=== PATIENT | female | born 1945 | race Caucasian/White ===

== ENCOUNTER 2021-12-17 14:29 | Emergency (ER) | payer MEDICARE ==
[~2021-12-17] VITALS: Ht 160 cm; Wt 88.5 kg
[2021-12-17 14:41] VITALS: BP_SYST 183
[2021-12-17] MEDS ORDERED: IBUPROFEN 600 MG TABLET PO ONE (16:15)
[2021-12-17 16:17] LABS: BASOPHILS % (AUTO) 0.4 % (0.0-2.0); EOSINOPHILS # (AUTO) 0.2 K/uL (0.0-0.4); EOSINOPHILS % (AUTO) 2.1 % (0.0-4.0); HEMATOCRIT 39.3 % (36-48); LYMPHOCYTES # (AUTO) 3.2 K/uL (1.0-5.5); LYMPHOCYTES % (AUTO) 34.5 % (20.5-51.5); MEAN CORPUSCULAR HEMOGLOBIN 30 pg (27-31); MEAN CORPUSCULAR HGB CONC 33 % (32-36); MEAN CORPUSCULAR VOLUME 91 fL (79.0-98.0); MONOCYTES # (AUTO) 0.7 K/uL (0.0-1.0); MONOCYTES % (AUTO) 7.5 % (1.7-9.3); NEUTROPHILS # (AUTO) 5.1 K/uL (1.8-7.7); NEUTROPHILS % (AUTO) 55.5 % (40.0-70.0); PLATELET COUNT (AUTO) 167 K/uL (130-430); RED BLOOD CELL COUNT(AUTO) 4.34 MIL/uL (4.2-6.2); RED CELL DISTRIBUTION WIDTH 15.2 % (9.0-15.0); WHITE BLOOD COUNT (AUTO) 9.2 K/uL (4.8-10.8)
[2021-12-17] MEDS ORDERED: KETOROLAC TROMETHAMINE 60 MG/2 ML VIAL IM ONE ×2 (17:45→17:47)
[2021-12-17] MEDS ORDERED: NAPR-690 PO (17:56)
[2021-12-17 18:21] VITALS: BP_SYST 183
[2021-12-17 19:53] LABS: ANION GAP 11 (5-15); CALCIUM 9.3 mg/dL (8.4-11.0); CHLORIDE 106 mmol/L (98-107); GLUCOSE 164 mg/dL (70-99); POTASSIUM 4.3 mmol/L (3.5-5.1)
[2021-12-17 19:54] LABS: ALANINE AMINOTRANSFERASE 30 U/L (12-78); ASPARTATE AMINOTRANSFERASE 35 U/L (10-37); TOTAL BILIRUBIN 1.4 mg/dL (0.0-1.0); UREA NITROGEN, BLOOD 21 mg/dL (8-21)
[2021-12-17 19:55] LABS: ALBUMIN 3.8 g/dL (3.4-4.8)
== END 2021-12-17 18:21 | disposition home or self-care (01) ==
LOC: SED 14:29
DX: M25.512 Pain in left shoulder (principal); M79.622 Pain in left upper arm; I10 Essential (primary) hypertension; Z79.899 Other long term (current) drug therapy
CPT/HCPCS: 99285; 70450; 80053; 85025; 87040; 36415; 93005; 73030; 72192; 76376; 96372; 83605; J1885

== ENCOUNTER 2022-03-29 08:10 | Day surgery (SDC) | payer OTHER ==
[~2022-03-29] VITALS: Ht 162.6 cm; Wt 86.2 kg
[~2022-03-29 08:10] MED LIST: NAPR-690 PO
[2022-03-29] MEDS ORDERED: PRO40 PO (09:04)
[2022-03-29] MEDS ORDERED: METO25TA6 PO (09:06)
[2022-03-29] MEDS ORDERED: ROSU40TA23 PO (09:08)
[2022-03-29] MEDS ORDERED: SITA1TBM7 PO (09:08)
[2022-03-29] MEDS ORDERED: LOSA50TA3 PO ×2 (09:10→09:13)
[2022-03-29] MEDS ORDERED: HYDR-3917 PO (10:38)
[2022-03-29] MEDS ORDERED: LABETALOL 100 MG/ 20ML VIAL IVP PRN (12:15)
[2022-03-29] MEDS ORDERED: METOCLOPRAMIDE HCL 10 MG/2 ML VIAL IVP PRN (12:15)
[2022-03-29] MEDS ORDERED: HYDROmorphone 1 MG/ML INJ. CARTRIDGE IVP PRN ×2 (12:15)
[2022-03-29] MEDS ORDERED: LR 1,000 ML IV SCH (12:15)
[2022-03-29] MEDS ORDERED: hydrALAZINE HCL 20 MG/ML VIAL IVP PRN (12:15)
[2022-03-29] MEDS ORDERED: MEPERIDINE HCL/PF 25 MG/ML DISP.SYRIN IVP PRN (12:15)
[2022-03-29] MEDS ORDERED: MIDAZOLAM HCL 2 MG/2 ML VIAL (VERSED) IVP PRN (12:15)
[2022-03-29] MEDS ORDERED: ACETAMINOPHEN I.V. 1000 MG 0 ML IV ONE (12:23)
[2022-03-29] MEDS ORDERED: NS IRRIG SOLN 5000 ML IR ONE (14:38)
[2022-03-29] MEDS ORDERED: ONDANSETRON HCL 4 MG/2 ML VIAL ONE (14:38)
[2022-03-29] MEDS ORDERED: ROCURONIUM BROMIDE 10 MG/ML (ZEMURON) ONE (14:38)
[2022-03-29] MEDS ORDERED: BUPIVACAINE /PF 0.25% 30 ML VIAL INJ ONE (14:38)
[2022-03-29] MEDS ORDERED: DESFLURANE 15 MIN GAS INH ONE (14:38)
[2022-03-29] MEDS ORDERED: LR 1,000 ML IV.SOLN IV ONE (14:38)
[2022-03-29] MEDS ORDERED: LIDOCAINE 1% 10 MG/ML, 20 ML MDV ONE (14:38)
[2022-03-29] MEDS ORDERED: ePHEDrine sulfate 50 MG/ML VIAL ONE (14:38)
[2022-03-29] MEDS ORDERED: BUPIVACAINE /EPINEPHRINE/PF 0.25% 30 ML VIAL ONE (14:38)
[2022-03-29] MEDS ORDERED: NS IRRIG SOLN 1000 ML IR ONE (14:38)
[2022-03-29] MEDS ORDERED: DEXAMETHASONE SOD PHOSPHATE 4 MG/ML VIAL ONE (14:38)
[2022-03-29] MEDS ORDERED: EPINEPHrine HCL 1 MG/ML VIAL ONE (14:38)
[2022-03-29] MEDS ORDERED: hydrALAZINE HCL 20 MG/ML VIAL ONE (15:19)
[2022-03-29 17:59] VITALS: BP_SYST 105
== END 2022-03-29 17:31 | disposition home or self-care (01) ==
LOC: SDS 08:10 → SMU 08:11 → SDS 17:31
PROVIDERS: ATTEND Orthopaedic Surgery Sports Medicine
DX: S46.012A Strain of muscle(s) and tendon(s) of the rotator cuff of left shoulder, initial encounter (principal); M75.02 Adhesive capsulitis of left shoulder; M77.8 Other enthesopathies, not elsewhere classified; I10 Essential (primary) hypertension; E11.9 Type 2 diabetes mellitus without complications; K21.9 Gastro-esophageal reflux disease without esophagitis; E78.5 Hyperlipidemia, unspecified; F41.9 Anxiety disorder, unspecified; F17.210 Nicotine dependence, cigarettes, uncomplicated; Z79.899 Other long term (current) drug therapy; Z20.822 Contact with and (suspected) exposure to COVID-19; W19.XXXA Unspecified fall, initial encounter; Y93.89 Activity, other specified; Y92.89 Other specified places as the place of occurrence of the external cause; Y99.8 Other external cause status
CPT/HCPCS: 36415 ×2; 29827; 64415; 29828; 82962; 87426; U0003; J3490 ×2; J1100; J0171; J0360; J2001; J3465; J2405; J7120; C1713 ×4; J0131